=== PATIENT | female | born 1975 | race Two or more races ===

== ENCOUNTER 2019-06-17 15:50 | Day surgery (SDC) | payer OTHER ==
[~2019-06-17 15:50] MED LIST: SEVOFLURANE 15 MIN
[2019-06-17] MEDS: LACTATED RINGER'S 1,000 ML IV (17:00)
[2019-06-17] MEDS ORDERED: PROPOFOL 20 ML (17:37)
[2019-06-17] MEDS ORDERED: MIDAZOLAM 1 MG/ML 2 ML INJ (17:38)
[2019-06-17] MEDS ORDERED: ROCURONIUM 50 MG INJ (17:38)
[2019-06-17] MEDS ORDERED: FENTAnyl 50 MCG/ML VIAL (17:38)
[2019-06-17] MEDS ORDERED: CEFAZOLIN 1 GM INJ (17:38)
[2019-06-17] MEDS: COCAINE 4% 4 ML TOP (17:52)
[2019-06-17] MEDS: LIDOCAINE 1%/EPI 30 ML INJ INJ (17:52)
[2019-06-17] MEDS ORDERED: FENTAnyl 50 MCG/ML VIAL IV ×2 (18:00)
[2019-06-17] MEDS ORDERED: HYDROmorphONE 1 MG/5 ML IV SYRINGE IV ×2 (18:00→19:13)
[2019-06-17] MEDS ORDERED: EPHEDrine 25 MG/5 ML SYG IV (18:00)
[2019-06-17] MEDS ORDERED: METOCLOPRAMIDE 10 MG INJ IV (18:00)
[2019-06-17] MEDS ORDERED: OXYCODONE/ACETAMINOPHEN (5/325) TAB PO (18:00)
[2019-06-17] MEDS ORDERED: LABETALOL HCL 20MG INJ IV (18:00)
[2019-06-17] MEDS ORDERED: LIDOCAINE 1%/EPI 30 ML INJ (18:02)
[2019-06-17] MEDS ORDERED: METOCLOPRAMIDE 10 MG INJ (18:03)
[2019-06-17] MEDS ORDERED: BACITRACIN/POLYMYXIN 28.35 GM OINT TOP (18:03)
[2019-06-17] MEDS ORDERED: EPINEPHrine 1 MG INJ (18:03)
[2019-06-17] MEDS ORDERED: KETOROLAC 30 MG INJ (18:03)
[2019-06-17] MEDS ORDERED: DEXAMETHASONE 4 MG/ML 5 ML INJ (18:03)
[2019-06-17] MEDS ORDERED: ONDANSETRON 4 MG INJ ×2 (18:03→19:13)
[2019-06-17] MEDS ORDERED: COCAINE 4% 4 ML TOP (18:03)
[2019-06-17] MEDS ORDERED: LIDOCAINE 1% (MDV) 20 ML INJ (18:05)
[2019-06-17] MEDS ORDERED: SUGAMMADEX SODIUM 200 MG/2 ML VIAL IV (18:34)
[2019-06-17] MEDS ORDERED: HYDROCODONE/APAP (5/325) TAB PO (19:00)
[2019-06-17] MEDS: HYDROmorphONE 1 MG/5 ML IV SYRINGE IV (19:14)
[2019-06-17] MEDS: ONDANSETRON 4 MG INJ IV (19:14)
== END 2019-06-17 20:43 | disposition home or self-care (01) ==
LOC: SDS 15:50
DX: J34.2 Deviated nasal septum (principal); J30.9 Allergic rhinitis, unspecified
CPT/HCPCS: 30140; 84703